=== PATIENT | female | born 1955 | race Two or more races ===

== ENCOUNTER → 2019-12-16 10:37 | Outpatient (CLI) | payer MEDICAID, SELFPAY ==
--- NOTE | 2019-12-16 10:41 | CA_ITS ---
APPROVED REPORT Exam: Pharmacologic Technologist: Jovana Ashton Ht: 4 ft 10 in Wt: 180 lbs BSA: 1.74 m2 HR: 77 bpm BP: 124/55 mmHg Indications: CAD, SOA, Stenosis Medical History Medications: Omeprazole,,,,, Levothyroxine,,,,, Furosemide (LASIX),,,,, Aspirin,,,,, Allopurinol,,,,, Atorvastatin,,,,, INSULIN,,,,, CloPIdogrel,,,,, Diclofenac,,,,, FeNOfibrate,,,,, Venlafaxine,,,,, Pregabalin,,,,, Stress Test Details Test: LEXISCAN HR Resting HR: 79 bpm Max Heart Rate (APMHR): 157 bpm Max HR Achieved: 96 bpm Target HR (85% APMHR): 133 bpm % of APMHR: 61 Recovery HR: 91 bpm BP Resting BP: 124.0/55.0 mmHg Max BP: 135.0/51.0 mmHg Recovery BP: 125.0/55.0 mmHg ECG Clinical Reason for Termination: Completed Protocol Exercise duration: 04:00 min Highest Stage Achieved: Exercise capacity: 1.0 METs Stress ECG Conclusion Resting ECG: Normal sinus rhythm Symptoms: No chest pain Arrhythmias/Ectopy: None ST-T Changes: < 1.[address] segment changes Conclusion: Non-diagnostic lexiscan stress test. Patient received the infusion per protocol without chest pain, ST segment changes (baseline EKG changes in lead III were exacerbated during stress) or arrhythmias. See the nuclear report for further information. Test Summary REST . . . . . . . Resting REST 07:45 . . 79 . 124/ 55 . . Stage 1 . . . . . . . Myoview Injected Stage 1 01:00 . . 92 . . . . Stage 2 01:00 . . 94 . 135/ 51 . . Stage 3 01:00 . . 93 . 110/ 53 . . Stage 4 01:00 . . 93 . 110/ 55 . Stop exercise at 04:00 RECOVERY 01:00 . . 93 . . . . RECOVERY 02:00 . . 92 . . . . RECOVERY 03:00 . . 90 . 125/ 55 . . RECOVERY 03:16 . . 90 . 125/ 55 . . Electronically signed by : Shoaib Corona, 12/16/2019 22:48:59
--- NOTE | 2019-12-16 10:41 | NM_ITS ---
APPROVED REPORT Exam: Nuclear Stress Test Indication: CAD..Short of breath Patient Location: Outpatient Stress Tech: Jovana Ashton BIPIN Tech:SIMONE Elias RT(R)(N) Ht: 4 ft 10 in Wt: 180 lbs Bra Size: d HR: 77 bpm BP: 124/55 mmHg BSA: 1.74 m2 BMI: 37.6 History: CAD..Short of breath Procedure: Patient received a 0.4 mg of intravenous Lexiscan, resting heart rate 77 bpm, resting blood pressure 124/55 mmHg, with Lexiscan maximum heart rate achived was 93 bpm which is Less than 85 % of the maximum predicted heart rate and blood pressure was 135/51 mmHg. With Lexiscan, patient denied any complaint of chest pain. Electrocardiogram Resting electrocardiogram showed sinus rhythm, with Lexiscan there is less than 1.[address] segment depression noted from the baseline EKG. The EKG portion of the Lexiscan is nondiagnostic. Cardiac Stress and Resting SPECT Images: Cardiac Stress and Resting SPECT images were obtained using technetium 99m Myoview 30.0 mCi stress and 10.20 mCi at rest. Gated SPECT for the analysis of segmental wall motion and calculation of the ejection fraction also done. Cardiac stress and resting SPECT images show uniform myocardial activity without segmental perfusion abnormality, computer derived ejection fraction is over 65% with no regional wall motion abnormality, right ventricle is normal size and contractility. Conclusion: 1. The EKG portion of the Lexiscan Myoview is nondiagnostic. 2. No scintigraphic evidence of reversible ischemia seen, computer derived ejection fraction is over 65% with no regional wall motion abnormality, right ventricle is normal size and contractility. 3. Normal Lexiscan Myoview study. Electronically signed by : Shoaib Corona, 12/16/2019 22:50:48
--- NOTE | 2019-12-16 10:41 | CA_ITS ---
APPROVED REPORT Furniture Upholsterer Apprentice: MENG Laterality: Bilateral Study Quality: Good Indications: left carotid bruit Doppler Spectral Velocity Analysis dICA (R) 85.80/26.30 cm/s dICA (L) 69.50/23.20 cm/s Hayley (R) 90.50/35.50 cm/s Hayley (L) 89.70/33.60 cm/s pICA (R) 78.90/22.00 cm/s pICA (L) 78.50/24.90 cm/s dCCA (R) 103.90/32.00 cm/s dCCA (L) 93.90/27.30 cm/s mCCA (R) 93.20/26.80 cm/s pCCA (L) 134.20/25.50 cm/s pCCA (R) 103.30/21.70 cm/s Vert (L) 36.80/9.90 cm/s Vert (R) 31.90/10.60 cm/s ICA/CCA 1.00 ICA/CCA 0.90 Conclusion Duplex evaluation demonstrates stenosis of the right proximal internal carotid artery in the range of 20-49%(lower end of scale) Duplex evaluation demonstrates stenosis of the left proximal internal carotid artery in the range of 20-49%(lower end of scale) with PSV <140 cm/sec, EDV <100 cm/sec, and IC/CC Ratio <4.0. with PSV <140 cm/sec, EDV <100 cm/sec, and IC/CC Ratio <4.0. Antegrade flow seen bilateral vertebral arteries. No significant change from exam of 08/22/17 Electronically signed by : Boni Jorgensen MD 12/16/2019 16:14:42
--- NOTE | 2019-12-16 10:41 | CA_ITS ---
APPROVED REPORT EXAM: Comprehensive 2D, Doppler, and color-flow Echocardiogram Machine Hose Cutter: Chuyita Ayala CRT Ht: 4 ft 10 in Wt: 185lbs BSA: 1.76 BP: 108/44 mmHg Indications: Abnormal ECG, Chest Pain, Shortness of Breath, Diabetes, Obesity, CAD, Hyperlipidemia, Hypertension/HDD, GERD, Pre-op 2D Dimensions LVOT 1.86 cm (M/F) 1.5-2.5 M-Mode Dimensions RVDd 1.94 cm (0.9-2.6) LVDd 4.53 cm (3.5-5.7) LVDs 2.93 cm (3.5-5.7) IVSd 0.87 cm (0.6-1.1) PWd 0.75 cm (0.6-1.1) EF (Teich) 64.90% FS 35.30% EDV (Teich) 93.90 mL ESV (Teich) 33.00 mL Left Ventricle Left atrium is mildly enlarged, left ventricle is normal size, mild concentric left ventricular hypertrophy, visually estimated ejection fraction 55% with no regional wall motion abnormality, Doppler evidence of impaired LV relaxation seen. Right Ventricle Right atrium and right ventricular normal size and contractility. Aortic Valve Aortic valve is thickened and calcified, there is no aortic stenosis or aortic insufficiency. Mitral Valve Mitral valve is grossly normal, there is mild mitral regurgitation. Tricuspid Valve Tricuspid valve is grossly normal, there is mild tricuspid regurgitation, tricuspid regurgitation jet velocity is inadequate for calculation of the right ventricular systolic pressure. Pulmonic Valve Pulmonic valve is poorly visualized. Great Vessels Aortic root is normal size. Pericardium No significant pericardial effusion noted. Conclusion 1. Mildly enlarged left atrium, normal left ventricular size, mild concentric left ventricular hypertrophy, visually estimated ejection fraction 55% with no regional wall motion abnormality, Doppler evidence of impaired LV relaxation seen. 2. Thickened and calcified aortic valve without aortic stenosis aortic insufficiency. 3. Mild mitral and tricuspid regurgitation. 4. No significant pericardial effusion noted Electronically signed by : Shoaib Corona, 12/16/2019 23:25:04
--- NOTE | 2019-12-16 14:15 | HMH.ITSHM ---
Current Home Medications as stated by this patient Michelle Zamudio or footwear sales representative. [] alprazolam omeprazole atorvastatin lisinopril
== END ==
PROVIDERS: PCP Family Medicine; Visit Provider Nurse Practitioner Family
DX: I65.23 Occlusion and stenosis of bilateral carotid arteries (principal); R09.89 Other specified symptoms and signs involving the circulatory and respiratory systems; E11.9 Type 2 diabetes mellitus without complications; I11.0 Hypertensive heart disease with heart failure; I25.10 Atherosclerotic heart disease of native coronary artery without angina pectoris; I50.32 Chronic diastolic (congestive) heart failure; R06.00 Dyspnea, unspecified; R07.9 Chest pain, unspecified; R94.31 Abnormal electrocardiogram [ECG] [EKG]; Z01.810 Encounter for preprocedural cardiovascular examination
CPT/HCPCS: 78452; 93017; 93306; 93880; A9502; J2785

== ENCOUNTER → 2020-12-30 11:56 | Outpatient (CLI) | payer MEDICAID, SELFPAY ==
--- NOTE | 2020-12-30 11:59 | CA_ITS ---
APPROVED REPORT Non Acoustic Operator: RAYMUNDO Laterality: Bilateral Study Quality: Adequate, Due to body habitus. Indications: marlen, Left Dialysis fistula, Left bruit Risk Factors Hypertension: Doppler Spectral Velocity Analysis ECA (R) 107.00/3.00 cm/s ECA (L) 75.40/23.10 cm/s dICA (R) 91.30/29.20 cm/s dICA (L) 75.80/26.30 cm/s Hayley (R) 90.50/34.40 cm/s Hayley (L) 61.60/20.50 cm/s pICA (R) 64.30/19.50 cm/s pICA (L) 77.10/14.80 cm/s dCCA (R) 79.70/17.10 cm/s dCCA (L) 88.00/19.00 cm/s pCCA (R) 114.40/18.20 cm/s pCCA (L) 142.20/19.70 cm/s Vert (R) 32.90/21.00 cm/s Vert (L) 44.30/10.90 cm/s ICA/CCA 1.10 ICA/CCA 0.90 Findings Duplex evaluation demonstrates no evidence of hemodynamically significant stenosis of the bilateral Internal Carotid Arteries. No intraluminal plaque was visualized in bilateral Carotid Arteries. Duplex evaluation demonstrates stenosis of the left proximal internal carotid artery <20% with PSV <140 cm/sec, EDV <100 cm/sec, and IC/CC Ratio <4.0. Duplex evaluation demonstrates stenosis of the right proximal internal carotid artery <20% with PSV <140 cm/sec, EDV <100 cm/sec, and IC/CC Ratio <4.0. Bilateral carotid arteries display tortuosity. Conclusion Duplex evaluation demonstrates stenosis of the left proximal internal carotid artery <20% with PSV <140 cm/sec, EDV <100 cm/sec, and IC/CC Ratio <4.0. Duplex evaluation demonstrates stenosis of the right proximal internal carotid artery <20% with PSV <140 cm/sec, EDV <100 cm/sec, and IC/CC Ratio <4.0. Electronically signed by : Boni Jorgensen MD 12/30/2020 16:16:53
--- NOTE | 2020-12-30 12:02 | NM_ITS ---
APPROVED REPORT Exam: Nuclear Stress Test Indication: CAD, HX [place], HTN, TOB USE, C.P., SOB, FATIGUE Patient Location: Outpatient Stress Tech: Swati [facility] Tech:SIMONE Graves RT (R)(N)(M) Ht: 4 ft 10 in Wt: 150 lbs Bra Size: 40DD HR: 70 bpm BP: 116/52 mmHg BSA: 1.61 m2 BMI: 31.3 History: CAD, HX [place], HTN, TOB USE, C.P., SOB, FATIGUE Procedure: Patient received a 0.4 mg of intravenous Lexiscan, resting heart rate 70 bpm, resting blood pressure 116/52 mmHg, with Lexiscan maximum heart rate achived was 82 bpm which is Less than 85 % of the maximum predicted heart rate and blood pressure was 105/46 mmHg. With Lexiscan, patient denied any complaint of chest pain. Electrocardiogram Resting electrocardiogram shows sinus rhythm, with Lexiscan there is less than 1.[address] segment depression noted from the baseline EKG. The EKG portion of the Lexiscan is nondiagnostic. Cardiac Stress and Resting SPECT Images: Cardiac Stress and Resting SPECT images were obtained using technetium 99m Myoview 31.7 mCi stress and 10.76 mCi at rest. Gated SPECT for analysis of segmental wall motion and calculation of the ejection fraction also done, prone images were also obtained. Cardiac stress and rest SPECT images show uniform myocardial without segmental perfusion abnormality, computer derived ejection fraction is over 65% with no regional wall motion abnormality, right ventricle is normal size and contractility. Conclusion: 1. The EKG portion of the Lexiscan is nondiagnostic. 2. No scintigraphic evidence of reversible ischemia seen, computer derived ejection fraction is over 65% with no regional wall motion abnormality, right ventricle is normal size and contractility 3. Normal Lexiscan Myoview study. Electronically signed by : Shoaib Corona MD 12/31/2020 15:06:06
--- NOTE | 2020-12-30 14:02 | CA_ITS ---
APPROVED REPORT Exam: Pharmacologic Technologist: Swati Cordoba, Ht: 4 ft 10 in Wt: 150 lbs BSA: 1.61 m2 HR: 71 bpm BP: 116/52 mmHg Medical History Medications: Omeprazole,,,,, Aspirin,,,,, Synthroid,,,,, Allopurinol,,,,, Lyrica,,,,, INSULIN,,,,, Plavix,,,,, FeNOfibrate,,,,, Loperamide,,,,, AtrovASTATIN,,,,, MiDOdrine,,,,, VenAflaxine,,,,, Stress Test Details Test: LEXISCAN HR Resting HR: 70 bpm Max Heart Rate (APMHR): 156 bpm Max HR Achieved: 88 bpm Target HR (85% APMHR): 132 bpm % of APMHR: 56 Recovery HR: 79 bpm BP Resting BP: 116/52 mmHg Max BP: 116/52 mmHg Recovery BP: 115.0/51.0 mmHg ECG Resting ECG: NSR, non-diagnostic Q waves in lead I, aVL Clinical Exercise duration: 04:00 min Highest Stage Achieved: Stress ECG Conclusion Symptoms: None Arrhythmias/Ectopy: None ST-T Changes: No significant changes Conclusion: Unremarkable Lexiscan stress. Myoview images reported separately. Electronically signed by : Shoaib Corona MD 12/31/2020 14:56:13
== END ==
PROVIDERS: Visit Provider Physician Assistant
DX: I20.8 Other forms of angina pectoris (principal); I11.0 Hypertensive heart disease with heart failure; I50.32 Chronic diastolic (congestive) heart failure; I65.23 Occlusion and stenosis of bilateral carotid arteries; E78.2 Mixed hyperlipidemia; N18.6 End stage renal disease; Z99.2 Dependence on renal dialysis
CPT/HCPCS: 78452; 93017; 93880; A9502; J2785

== ENCOUNTER → 2022-04-06 10:39 | Outpatient (CLI) | payer MEDICARE, MEDICAID, SELFPAY ==
[2022-04-06 11:30] LABS: Alanine Aminotransferase 17 U/L (12-78); Albumin Level 4.2 g/dl (3.5-5.0); Alkaline Phosphatase 119 U/L (38-126); Aspartate Amino Transferase 28 U/L (14-36); Bilirubin,Direct 0.2 mg/dl (0.0-0.4); Bilirubin,Indirect 0.2 mg/dL (0.0-0.9); Bilirubin,Total 0.4 mg/dl (0.2-1.3); Bilirubin,Unconjugated 0.2 mg/dL (0.0-1.1); Cholesterol 123 mg/dl (140-200); Total Protein,Serum 6.4 g/dl (6.3-8.2); Triglycerides 190 mg/dl (30-150); VLDL Cholesterol 38 mg/dL (0-40)
[2022-04-06 11:31] LABS: Chol/HDL Ratio 2.9 (1-3.5); HDL Cholesterol 42 mg/dl (40-60)
[2022-04-06 11:41] LABS: Direct LDL Cholesterol 43.55 mg/dL (100-129)
== END ==
PROVIDERS: Visit Provider Internal Medicine
DX: N18.6 End stage renal disease (principal); Z99.2 Dependence on renal dialysis; E78.2 Mixed hyperlipidemia
CPT/HCPCS: 36415; 80061; 80076

== ENCOUNTER → 2022-04-13 13:27 | Outpatient (CLI) | payer MEDICARE, MEDICAID, SELFPAY | PROVIDERS: Visit Provider Nurse Practitioner | DX: R06.02 Shortness of breath (principal) | CPT/HCPCS: 93306 ==